=== PATIENT | female | born 1975 | race Caucasian/White ===

== ENCOUNTER 2023-01-19 15:31 | Emergency (ER) | payer OTHER ==
--- OUTSIDE RECORDS SUMMARY | 2023-01-19 15:34 | XMS REPORT | Continuity of Care Document ---
:1975 Author Organization [facility] Address [address] [place] [address] [place] [id number] Care Team Providers Name Role Phone PCP, PATIENT DOES NOT HAVE A Primary Care Physician Unavaila ble SISSON_C Attending Clinician Unavailable Kamran Carlson Attending Clinician Unavailable Ehsan THOMAS, Andreea Martin Attending Clinician Unavailable Naun Lauren MD Attending Clinician NAUN LAUREN Attending Clinician Unavailable Doctor Unassigned, [facility] Attending Clinician Unavailable DRAKE_[email or web address]_Franny Attending Clinician Unavailable SISSON_C Admitting Clinician Unavailable Kamran Carlson Admitting Clinician Unavailable Jl_Franny Admitting Clinician Unavailable Payers Payer Name Policy Type Policy Number Effective Date Expiration Date [facility] [id number] 2021 00:00:00 [place] [id number] 2017 2021 00:00:00 00:00:00 Problems Condition Condition Condition Status Onset Resolution Last Treating Co mments Source Name Details Category Date Date Treatment Clinician Date Upper Upper Disease Active 2021-06 [facility] extremity extremity 1-21 ity of weakness weakness 00:00: [address] Neck pain Neck pain Disease Active 2021-06 Uni vers -21 ity of 00:00: [address] Branch 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 [place] [facility] Allergies, Adverse Reactions, Alerts Allergy Allergy Status Severity Reaction(s) Onset Inactive Treating Comm ents Source Name Type Date Date Clinician No Known DA Active [facility] Allergie 3-03 Clear s 00:00: [place] 00 [facility] NO KNOWN Drug Active Univers ALLERGIE Class [facility] Social History Social Habit Start Date Stop Date Quantity Comments Source Exposure to 2022-05-06 2022-05-16 Not sure [facility] SARS-CoV-2 (event) 00:00:00 15:53:00 [facility] Branch Sex Assigned At [birth year] [facility] 00:00:00 00:00:00 Medical Branch Smoking Status Start Date Stop Date Source Tobacco smoking consumption [facility] Branch Medications Ordered Filled Start Stop Current Ordering Indication Dosage Frequency Signature Comments Components Source Medication Medication Date Date Medication? Clinician (SIG) Name Name Xeomin 100 Xeomin 100 No Xeomin 100 [place] unit unit 5-16 unit Communi intramuscul intramuscul 13:42: intramuscu ty ar ar 48 lar Hospita solutionInj solutionInj solutionIn l ect 44 ect 44 ject 44 Clinics units by units by units by intramuscul intramuscul intramuscu ar route. ar route. lar route. cyclobenzap cyclobenzap No cyclobenza [place] rine 10 mg rine 10 mg alvaro 10 Communi tablet TAKE tablet TAKE mg tablet ty 1 TABLET BY 1 TABLET BY TAKE 1 Hospita MOUTH EVERY MOUTH EVERY TABLET BY l DAY AT DAY AT MOUTH Clinics BEDTIME BEDTIME EVERY DAY NEEDED NEEDED AT BEDTIME NEEDED dextroamphe dextroamphe No dextroamph [place] tamine-amph tamine-amph etamine-am Communi etamine 30 etamine 30 phetamine ty mg tablet mg tablet 30 mg Hosp isi TAKE 1 TAKE 1 tablet l TABLET BY TABLET BY TAKE 1 Cli nics MOUTH THREE MOUTH THREE TABLET BY TIMES DAILY TIMES DAILY MOUTH THREE TIMES DAILY diclofenac diclofenac No diclofenac [place] sodium 75 sodium 75 sodium 75 Communi mg mg mg ty tablet,luz tablet,luz tablet,del Hospita yed release yed release ayed l TAKE 1 TAKE 1 release Clinics TABLET BY TABLET BY TAKE 1 MOUTH TWICE MOUTH TWICE TABLET BY DAILY AFTER DAILY AFTER MOUTH DOSE PACK DOSE PACK TWICE DAILY AFTER DOSE PACK escitalopra escitalopra No escitalopr [place] m 5 mg m 5 mg am 5 mg Communi tablet TAKE tablet TAKE tablet ty 1 TABLET BY 1 TABLET BY TAKE 1 Hospita MOUTH EVERY MOUTH EVERY TABLET BY l DAY DAY MOUTH Clinics EVERY DAY estradiol estradiol No estradiol [place] 12.5 mg 12.5 mg 12.5 mg Commun i implant implant implant ty pellet 15 pellet 15 pellet 15 Hospita MG MG MG l Clinics etodolac etodolac No etodolac Swe m[place] 500 mg 500 mg 500 mg Communi tablet TAKE tablet TAKE tablet ty 1 TABLET BY 1 TABLET BY TAKE 1 Hospita MOUTH TWICE MOUTH TWICE TABLET BY l DAILY DAILY MOUTH Clinics TWICE DAILY methylpredn methylpredn No methylpred [place] isolone 4 isolone 4 nisolone 4 Communi mg tablets mg tablets mg tablets ty in a dose in a dose in a dose Hospita pack FOLLOW pack FOLLOW pack l PACKAGE PACKAGE FOLLOW Clinics DIRECTIONS DIRECTIONS PACKAGE DIRECTIONS neomycin-po neomycin-po No neomycin-p [place] lymyxin-hyd lymyxin-hyd olymyxin-h Communi rocort 3.5 rocort 3.5 ydrocort ty mg-10,000 mg-10,000 3.5 Hospi ta unit/mL-1 % unit/mL-1 % mg-10,000 l ear ear unit/mL-1 Clinics drops,susp drops,susp % ear drops,susp quetiapine quetiapine No quetiapine [place] 25 mg 25 mg 25 mg Communi tablet TAKE tablet TAKE tablet ty 3 TABLETS 3 TABLETS TAKE 3 Hos issac BY MOUTH AT BY MOUTH AT TABLETS BY l BEDTIME BEDTIME MOUTH AT Clini cs BEDTIME testosteron testosteron No 137.5mg testostero [place] e 100 mg e 100 mg ne 100 mg Co mmuni implant implant implant ty pellet Take pellet Take pellet Hospita 137.5 mg by 137.5 mg by Take 137.5 l implantatio implantatio mg by Clinics n route. n route. implantati on route. tramadol 50 tramadol 50 No tramadol [place] mg tablet mg tablet 50 mg Comm uni TAKE 1 TAKE 1 tablet ty TABLET BY TABLET BY TAKE 1 Hos issac MOUTH THREE MOUTH THREE TABLET BY l TIMES DAILY TIMES DAILY MOUTH Clinics NEEDED NEEDED THREE TIMES DAILY NEEDED Xeomin 100 Xeomin 100 No 28unit( Xeomin 100 [place] unit unit s) unit Communi intramuscul intramuscul intramuscu ty ar solution ar solution lar H ospita Inject 28 Inject 28 solution l units by units by Inject 28 Cl inics intramuscul intramuscul units by ar route. ar route. intramuscu lar route. acetaminoph acetaminoph No acetaminop [place] en 300 en 300 hen 300 Communi mg-codeine mg-codeine mg-codeine ty 30 mg 30 mg 30 mg Hospita tablet TAKE tablet TAKE tablet l 1 TABLET BY 1 TABLET BY TAKE 1 Clinics MOUTH EVERY MOUTH EVERY TABLET BY 4 TO 6 4 TO 6 MOUTH HOURS HOURS EVERY 4 TO NEEDED NEEDED 6 HOURS NEEDED azithromyci azithromyci No azithromyc [place] n 250 mg n 250 mg in 250 mg Co mmuni tablet tablet tablet ty Hospita l Clinics bromphenira bromphenira No bromphenir [place] mine-pseudo mine-pseudo amine-pseu Communi ephedrine-D ephedrine-D doephedrin ty M 2 mg-30 M 2 mg-30 e-DM 2 Hos issac mg-10 mg/5 mg-10 mg/5 mg-30 l mL oral mL oral mg-10 mg/5 Cli nics syrup TAKE syrup TAKE mL oral 5 ML BY 5 ML BY syrup TAKE MOUTH EVERY MOUTH EVERY 5 ML BY 6 HOURS 6 HOURS MOUTH NEEDED NEEDED EVERY 6 HOURS NEEDED clonazepam clonazepam No clonazepam [place] 0.5 mg 0.5 mg 0.5 mg Communi tablet TAKE tablet TAKE tablet ty 1 TABLET BY 1 TABLET BY TAKE 1 Hospita MOUTH THREE MOUTH THREE TABLET BY l TIMES DAILY TIMES DAILY MOUTH Clinics THREE TIMES DAILY cyclobenzap cyclobenzap No cyclobenza [place] rine 10 mg rine 10 mg alvaro 10 Communi tablet TAKE tablet TAKE mg tablet ty 1 TABLET BY 1 TABLET BY TAKE 1 Hospita MOUTH EVERY MOUTH EVERY TABLET BY l DAY AT DAY AT MOUTH Clinics BEDTIME BEDTIME EVERY DAY NEEDED NEEDED AT BEDTIME NEEDED dextroamphe dextroamphe No dextroamph [place] tamine-amph tamine-amph etamine-am Communi etamine 30 etamine 30 phetamine ty mg tablet mg tablet 30 mg Hosp isi TAKE 1 TAKE 1 tablet l TABLET BY TABLET BY TAKE 1 Cli nics MOUTH THREE MOUTH THREE TABLET BY TIMES DAILY TIMES DAILY MOUTH THREE TIMES DAILY diclofenac diclofenac No diclofenac [place] sodium 75 sodium 75 sodium 75 Communi mg mg mg ty tablet,luz tablet,luz tablet,del Hospita yed release yed release ayed l TAKE 1 TAKE 1 release Clinics TABLET BY TABLET BY TAKE 1 MOUTH TWICE MOUTH TWICE TABLET BY DAILY AFTER DAILY AFTER MOUTH DOSE PACK DOSE PACK TWICE DAILY AFTER DOSE PACK escitalopra escitalopra No escitalopr [place] m 5 mg m 5 mg am 5 mg Communi tablet TAKE tablet TAKE tablet ty 1 TABLET BY 1 TABLET BY TAKE 1 Hospita MOUTH EVERY MOUTH EVERY TABLET BY l DAY DAY MOUTH Clinics EVERY DAY estradiol estradiol No estradiol [place] 12.5 mg 12.5 mg 12.5 mg Commun i implant implant implant ty pellet 15 pellet 15 pellet 15 Hospita MG MG MG l Clinics etodolac etodolac No etodolac Swe [place] 500 mg 500 mg 500 mg Communi tablet TAKE tablet TAKE tablet ty 1 TABLET BY 1 TABLET BY TAKE 1 Hospita MOUTH TWICE MOUTH TWICE TABLET BY l DAILY DAILY MOUTH Clinics TWICE DAILY hydrocodone hydrocodone No hydrocodon [place] 7.5 7.5 e 7.5 Communi mg-acetamin mg-acetamin mg-acetami ty ophen 325 ophen 325 nophen 325 Hospita mg tablet mg tablet mg tablet l TAKE 1 TAKE 1 TAKE 1 Clinics TABLET BY TABLET BY TABLET BY MOUTH EVERY MOUTH EVERY MOUTH 12 HOURS 12 HOURS EVERY 12 NEEDED NEEDED HOURS NEEDED methylpredn methylpredn No methylpred [place] isolone 4 isolone 4 nisolone 4 Communi mg tablets mg tablets mg tablets ty in a dose in a dose in a dose Hospita pack FOLLOW pack FOLLOW pack l PACKAGE PACKAGE FOLLOW Clinics DIRECTIONS DIRECTIONS PACKAGE DIRECTIONS nabumetone nabumetone No nabumetone [place] 750 mg 750 mg 750 mg Communi tablet TAKE tablet TAKE tablet ty ONE TABLET ONE TABLET TAKE ONE Hospita BY MOUTH BY MOUTH TABLET BY l TWICE A DAY TWICE A DAY MOUTH Clinics TWICE A DAY neomycin-po neomycin-po No neomycin-p [place] lymyxin-hyd lymyxin-hyd olymyxin-h Communi rocort 3.5 rocort 3.5 ydrocort ty mg-10,000 mg-10,000 3.5 Hospi ta unit/mL-1 % unit/mL-1 % mg-10,000 l ear ear unit/mL-1 Clinics drops,susp drops,susp % ear drops,susp neomycin-po neomycin-po No neomycin-p [place] lymyxin-hyd lymyxin-hyd olymyxin-h Communi rocort 3.5 rocort 3.5 ydrocort ty mg/mL-10,00 mg/mL-10,00 3.5 H ospita 0 unit/mL-1 0 unit/mL-1 mg/mL-10,0 l % ear % ear 00 Clinics solution solution unit/mL-1 INSTILL 4 INSTILL 4 % ear DROPS INTO DROPS INTO solution AFFECTED AFFECTED INSTILL 4 EAR(S) BY EAR(S) BY DROPS INTO OTIC ROUTE OTIC ROUTE AFFECTED 3 TIMES PER 3 TIMES PER EAR(S) BY DAY DAY OTIC ROUTE 3 TIMES PER DAY quetiapine quetiapine No quetiapine [place] 25 mg 25 mg 25 mg Communi tablet TAKE tablet TAKE tablet ty 3 TABLETS 3 TABLETS TAKE 3 Hos issac BY MOUTH AT BY MOUTH AT TABLETS BY l BEDTIME BEDTIME MOUTH AT Clini cs BEDTIME testosteron testosteron No 137.5mg testostero [place] e 100 mg e 100 mg ne 100 mg Co mmuni implant implant implant ty pellet Take pellet Take pellet Hospita 137.5 mg by 137.5 mg by Take 137.5 l implantatio implantatio mg by Clinics n route. n route. implantati on route. tramadol 50 tramadol 50 No tramadol [place] mg tablet mg tablet 50 mg Comm uni TAKE 1 TAKE 1 tablet ty TABLET BY TABLET BY TAKE 1 Hos issac MOUTH THREE MOUTH THREE TABLET BY l TIMES DAILY TIMES DAILY MOUTH Clinics NEEDED NEEDED THREE TIMES DAILY NEEDED Xeomin 100 Xeomin 100 No 44unit( Xeomin 100 [place] unit unit s) unit Communi intramuscul intramuscul intramuscu ty ar solution ar solution lar H ospita Inject 44 Inject 44 solution l units by units by Inject 44 Cl inics intramuscul intramuscul units by ar route. ar route. intramuscu lar route. acetaminoph acetaminoph No acetaminop [place] en 300 en 300 hen 300 Communi mg-codeine mg-codeine mg-codeine ty 30 mg 30 mg 30 mg Hospita tablet TAKE tablet TAKE tablet l 1 TABLET BY 1 TABLET BY TAKE 1 Clinics MOUTH EVERY MOUTH EVERY TABLET BY 4 TO 6 4 TO 6 MOUTH HOURS HOURS EVERY 4 TO NEEDED NEEDED 6 HOURS NEEDED azithromyci azithromyci No azithromyc [place] n 250 mg n 250 mg in 250 mg Co mmuni tablet tablet tablet ty Hospita l Clinics bromphenira bromphenira No bromphenir [place] mine-pseudo mine-pseudo amine-pseu Communi ephedrine-D ephedrine-D doephedrin ty M 2 mg-30 M 2 mg-30 e-DM 2 Hos issac mg-10 mg/5 mg-10 mg/5 mg-30 l mL oral mL oral mg-10 mg/5 Cli nics syrup TAKE syrup TAKE mL oral 5 ML BY 5 ML BY syrup TAKE MOUTH EVERY MOUTH EVERY 5 ML BY 6 HOURS 6 HOURS MOUTH NEEDED NEEDED EVERY 6 HOURS NEEDED clonazepam clonazepam No clonazepam [place] 0.5 mg 0.5 mg 0.5 mg Communi tablet TAKE tablet TAKE tablet ty 1 TABLET BY 1 TABLET BY TAKE 1 Hospita MOUTH THREE MOUTH THREE TABLET BY l TIMES DAILY TIMES DAILY MOUTH Clinics THREE TIMES DAILY dextroamphe dextroamphe No dextroamph [place] tamine-amph tamine-amph etamine-am Communi etamine 30 etamine 30 phetamine ty mg tablet mg tablet 30 mg Hosp isi TAKE 1 TAKE 1 tablet l TABLET BY TABLET BY TAKE 1 Cli nics MOUTH THREE MOUTH THREE TABLET BY TIMES DAILY TIMES DAILY MOUTH THREE TIMES DAILY escitalopra escitalopra No escitalopr [place] m 5 mg m 5 mg am 5 mg Communi tablet TAKE tablet TAKE tablet ty 1 TABLET BY 1 TABLET BY TAKE 1 Hospita MOUTH EVERY MOUTH EVERY TABLET BY l DAY DAY MOUTH Clinics EVERY DAY etodolac etodolac No etodolac [place] 500 mg 500 mg 500 mg Communi tablet TAKE tablet TAKE tablet ty 1 TABLET BY 1 TABLET BY TAKE 1 Hospita MOUTH TWICE MOUTH TWICE TABLET BY l DAILY DAILY MOUTH Clinics TWICE DAILY methylpredn methylpredn No methylpred [place] isolone 4 isolone 4 nisolone 4 Communi mg tablets mg tablets mg tablets ty in a dose in a dose in a dose Hospita pack FOLLOW pack FOLLOW pack l PACKAGE PACKAGE FOLLOW Clinics DIRECTIONS DIRECTIONS PACKAGE DIRECTIONS neomycin-po neomycin-po No neomycin-p [place] lymyxin-hyd lymyxin-hyd olymyxin-h Communi rocort 3.5 rocort 3.5 ydrocort ty mg-10,000 mg-10,000 3.5 Hospi ta unit/mL-1 % unit/mL-1 % mg-10,000 l ear ear unit/mL-1 Clinics drops,susp drops,susp % ear drops,susp quetiapine quetiapine No quetiapine [place] 25 mg 25 mg 25 mg Communi tablet TAKE tablet TAKE tablet ty 3 TABLETS 3 TABLETS TAKE 3 Hos issac BY MOUTH AT BY MOUTH AT TABLETS BY l BEDTIME BEDTIME MOUTH AT Clini cs BEDTIME acetaminoph acetaminoph No acetaminop [place] en 300 en 300 hen 300 Communi mg-codeine mg-codeine mg-codeine ty 30 mg 30 mg 30 mg Hospita tablet TAKE tablet TAKE tablet l 1 TABLET BY 1 TABLET BY TAKE 1 Clinics MOUTH EVERY MOUTH EVERY TABLET BY 4 TO 6 4 TO 6 MOUTH HOURS HOURS EVERY 4 TO NEEDED NEEDED 6 HOURS NEEDED azithromyci azithromyci No azithromyc [place] n 250 mg n 250 mg in 250 mg Co mmuni tablet tablet tablet ty [facility] bromphenira bromphenira No bromphenir [place] mine-pseudo mine-pseudo amine-pseu Communi ephedrine-D ephedrine-D doephedrin ty M 2 mg-30 M 2 mg-30 e-DM 2 Hos issac mg-10 mg/5 mg-10 mg/5 mg-30 l mL oral mL oral mg-10 mg/5 Cli nics syrup TAKE syrup TAKE mL oral 5 ML BY 5 ML BY syrup TAKE MOUTH EVERY MOUTH EVERY 5 ML BY 6 HOURS 6 HOURS MOUTH NEEDED NEEDED EVERY 6 HOURS NEEDED clonazepam clonazepam No clonazepam [place] 0.5 mg 0.5 mg 0.5 mg Communi tablet TAKE tablet TAKE tablet ty 1 TABLET BY 1 TABLET BY TAKE 1 [facility] THREE MOUTH THREE TABLET BY l TIMES DAILY TIMES DAILY MOUTH Clinics THREE TIMES DAILY cyclobenzap cyclobenzap No cyclobenza [place] rine 10 mg rine 10 mg alvaro 10 Communi tablet tablet mg tablet ty Hospita l Clinics dextroamphe dextroamphe No dextroamph [place] tamine-amph tamine-amph etamine-am Communi etamine 30 etamine 30 phetamine ty mg tablet mg tablet 30 mg Hosp isi TAKE 1 TAKE 1 tablet l TABLET BY TABLET BY TAKE 1 Cli nics MOUTH THREE MOUTH THREE TABLET BY TIMES DAILY TIMES DAILY MOUTH THREE TIMES DAILY diclofenac diclofenac No diclofenac [place] sodium 75 sodium 75 sodium 75 Communi mg mg mg ty tablet,luz tablet,luz tablet,del Hospita yed release yed release ayed l TAKE 1 TAKE 1 release Clinics TABLET BY TABLET BY TAKE 1 MOUTH TWICE MOUTH TWICE TABLET BY DAILY AFTER DAILY AFTER MOUTH DOSE PACK DOSE PACK TWICE DAILY AFTER DOSE PACK escitalopra escitalopra No escitalopr [place] m 5 mg m 5 mg am 5 mg Communi tablet TAKE tablet TAKE tablet ty 1 TABLET BY 1 TABLET BY TAKE 1 Hospita MOUTH EVERY MOUTH EVERY TABLET BY l DAY DAY MOUTH Clinics EVERY DAY etodolac etodolac No etodolac [place] 500 mg 500 mg 500 mg Communi tablet TAKE tablet TAKE tablet ty 1 TABLET BY 1 TABLET BY TAKE 1 Hospita MOUTH TWICE MOUTH TWICE TABLET BY l DAILY DAILY MOUTH Clinics TWICE DAILY methylpredn methylpredn No methylpred [place] isolone 4 isolone 4 nisolone 4 Communi mg tablets mg tablets mg tablets ty in a dose in a dose in a dose Hospita pack FOLLOW pack FOLLOW pack l PACKAGE PACKAGE FOLLOW Clinics DIRECTIONS DIRECTIONS PACKAGE DIRECTIONS neomycin-po neomycin-po No neomycin-p [place] lymyxin-hyd lymyxin-hyd olymyxin-h Communi rocort 3.5 rocort 3.5 ydrocort ty mg-10,000 mg-10,000 3.5 Hospi ta unit/mL-1 % unit/mL-1 % mg-10,000 l ear ear unit/mL-1 Clinics drops,susp drops,susp % ear drops,susp quetiapine quetiapine No quetiapine [place] 25 mg 25 mg 25 mg Communi tablet TAKE tablet TAKE tablet ty 3 TABLETS 3 TABLETS TAKE 3 Hos issac BY MOUTH AT BY MOUTH AT TABLETS BY l BEDTIME BEDTIME MOUTH AT Clini cs BEDTIME tramadol 50 tramadol 50 No tramadol [place] mg tablet mg tablet 50 mg Comm uni TAKE 1 TAKE 1 tablet ty TABLET BY TABLET BY TAKE 1 Hos issac MOUTH THREE MOUTH THREE TABLET BY l TIMES DAILY TIMES DAILY MOUTH Clinics NEEDED NEEDED THREE TIMES DAILY NEEDED Xeomin 100 Xeomin 100 No 28unit( Xeomin 100 [place] unit unit s) unit Communi intramuscul intramuscul intramuscu ty ar solution ar solution lar H ospita Inject 28 Inject 28 solution l units by units by Inject 28 Cl inics intramuscul intramuscul units by ar route. ar route. intramuscu lar route. acetaminoph acetaminoph No acetaminop [place] en 300 en 300 hen 300 Communi mg-codeine mg-codeine mg-codeine ty 30 mg 30 mg 30 mg Hospita tablet TAKE tablet TAKE tablet l 1 TABLET BY 1 TABLET BY TAKE 1 Clinics MOUTH EVERY MOUTH EVERY TABLET BY 4 TO 6 4 TO 6 MOUTH HOURS HOURS EVERY 4 TO NEEDED NEEDED 6 HOURS NEEDED azithromyci azithromyci No azithromyc [place] n 250 mg n 250 mg in 250 mg [facility]i tablet tablet tablet ty Hospita l Clinics bromphenira bromphenira No bromphenir [place] mine-pseudo mine-pseudo amine-pseu Communi ephedrine-D ephedrine-D doephedrin ty M 2 mg-30 M 2 mg-30 e-DM 2 Hos issac mg-10 mg/5 mg-10 mg/5 mg-30 l mL oral mL oral mg-10 mg/5 Cli nics syrup TAKE syrup TAKE mL oral 5 ML BY 5 ML BY syrup TAKE MOUTH EVERY MOUTH EVERY 5 ML BY 6 HOURS 6 HOURS MOUTH NEEDED NEEDED EVERY 6 HOURS NEEDED clonazepam clonazepam No clonazepam [place] 0.5 mg 0.5 mg 0.5 mg Communi tablet TAKE tablet TAKE tablet ty 1 TABLET BY 1 TABLET BY TAKE 1 Hospita MOUTH THREE MOUTH THREE TABLET BY l TIMES DAILY TIMES DAILY MOUTH Clinics THREE TIMES DAILY cyclobenzap cyclobenzap No cyclobenza [place] rine 10 mg rine 10 mg alvaro 10 Communi tablet TAKE tablet TAKE mg tablet ty 1 TABLET BY 1 TABLET BY TAKE 1 Hospita MOUTH EVERY MOUTH EVERY TABLET BY l DAY AT DAY AT MOUTH Clinics BEDTIME BEDTIME EVERY DAY NEEDED NEEDED AT BEDTIME NEEDED dextroamphe dextroamphe No dextroamph [place] tamine-amph tamine-amph etamine-am Communi etamine 30 etamine 30 phetamine ty mg tablet mg tablet 30 mg Hosp isi TAKE 1 TAKE 1 tablet l TABLET BY TABLET BY TAKE 1 Cli nics MOUTH THREE MOUTH THREE TABLET BY TIMES DAILY TIMES DAILY MOUTH THREE TIMES DAILY diclofenac diclofenac No diclofenac [place] sodium 75 sodium 75 sodium 75 Communi mg mg mg ty tablet,luz tablet,luz tablet,del Hospita yed release yed release ayed l TAKE 1 TAKE 1 release Clinics TABLET BY TABLET BY TAKE 1 MOUTH TWICE MOUTH TWICE TABLET BY DAILY AFTER DAILY AFTER MOUTH DOSE PACK DOSE PACK TWICE DAILY AFTER DOSE PACK escitalopra escitalopra No escitalopr [place] m 5 mg m 5 mg am 5 mg Communi tablet TAKE tablet TAKE tablet ty 1 TABLET BY 1 TABLET BY TAKE 1 Hospita MOUTH EVERY MOUTH EVERY TABLET BY l DAY DAY MOUTH Clinics EVERY DAY estradiol estradiol No estradiol [place] 12.5 mg 12.5 mg 12.5 mg Commun i implant implant implant ty pellet 15 pellet 15 pellet 15 Hospita MG MG MG l Clinics etodolac etodolac No etodolac Swe [place] 500 mg 500 mg 500 mg Communi tablet TAKE tablet TAKE tablet ty 1 TABLET BY 1 TABLET BY TAKE 1 Hospita MOUTH TWICE MOUTH TWICE TABLET BY l DAILY DAILY MOUTH Clinics TWICE DAILY methylpredn methylpredn No methylpred [place] isolone 4 isolone 4 nisolone 4 Communi mg tablets mg tablets mg tablets ty in a dose in a dose in a dose Hospita pack FOLLOW pack FOLLOW pack l PACKAGE PACKAGE FOLLOW Clinics DIRECTIONS DIRECTIONS PACKAGE DIRECTIONS neomycin-po neomycin-po No neomycin-p [place] lymyxin-hyd lymyxin-hyd olymyxin-h Communi rocort 3.5 rocort 3.5 ydrocort ty mg-10,000 mg-10,000 3.5 Hospi ta unit/mL-1 % unit/mL-1 % mg-10,000 l ear ear unit/mL-1 Clinics drops,susp drops,susp % ear drops,susp quetiapine quetiapine No quetiapine [place] 25 mg 25 mg 25 mg Communi tablet TAKE tablet TAKE tablet ty 3 TABLETS 3 TABLETS TAKE 3 Hos issac BY MOUTH AT BY MOUTH AT TABLETS BY l BEDTIME BEDTIME MOUTH AT Clini cs BEDTIME testosteron testosteron No 137.5mg testostero [place] e 100 mg e 100 mg ne 100 mg Co [facility] implant implant implant ty pellet Take pellet Take pellet Hospita 137.5 mg by 137.5 mg by Take 137.5 l implantatio implantatio mg by Clinics n route. n route. implantati on route. tramadol 50 tramadol 50 No tramadol [place] mg tablet mg tablet 50 mg Comm uni TAKE 1 TAKE 1 tablet ty TABLET BY TABLET BY TAKE 1 Hos issac MOUTH THREE MOUTH THREE TABLET BY l TIMES DAILY TIMES DAILY MOUTH Clinics NEEDED NEEDED THREE TIMES DAILY NEEDED Xeomin 100 Xeomin 100 No 28unit( Xeomin 100 [place] unit unit s) unit Communi intramuscul intramuscul intramuscu ty ar solution ar solution lar H ospita Inject 28 Inject 28 solution l units by units by Inject 28 Cl inics intramuscul intramuscul units by ar route. ar route. intramuscu lar route. acetaminoph acetaminoph No acetaminop [place] en 300 en 300 hen 300 Communi mg-codeine mg-codeine mg-codeine ty 30 mg 30 mg 30 mg Hospita tablet TAKE tablet TAKE tablet l 1 TABLET BY 1 TABLET BY TAKE 1 Clinics MOUTH EVERY MOUTH EVERY TABLET BY 4 TO 6 4 TO 6 MOUTH HOURS HOURS EVERY 4 TO NEEDED NEEDED 6 HOURS NEEDED azithromyci azithromyci No azithromyc [place] n 250 mg n 250 mg in 250 mg [facility]i tablet tablet tablet ty Hospita l Clinics bromphenira bromphenira No bromphenir [place] mine-pseudo mine-pseudo amine-pseu Communi ephedrine-D ephedrine-D doephedrin ty M 2 mg-30 M 2 mg-30 e-DM 2 Hos issac mg-10 mg/5 mg-10 mg/5 mg-30 l mL oral mL oral mg-10 mg/5 Cli nics syrup TAKE syrup TAKE mL oral 5 ML BY 5 ML BY syrup TAKE MOUTH EVERY MOUTH EVERY 5 ML BY 6 HOURS 6 HOURS MOUTH NEEDED NEEDED EVERY 6 HOURS NEEDED clonazepam clonazepam No clonazepam [place] 0.5 mg 0.5 mg 0.5 mg Communi tablet TAKE tablet TAKE tablet ty 1 TABLET BY 1 TABLET BY TAKE 1 Hospita MOUTH THREE MOUTH THREE TABLET BY l TIMES DAILY TIMES DAILY MOUTH Clinics THREE TIMES DAILY Vital Signs Vital Name Observation Time Observation Value Comments Source BP Diastolic 2022-07-04 00:00:00 79 mm[Hg] [facility] BP Systolic 2022-07-04 00:00:00 114 mm[Hg] [facility] Body Weight 2022-07-04 00:00:00 2656 [oz_av] [facility] Procedures Procedure Date / Time Performing Clinician Source Performed NO SHOW OR MISSED 2022-04-20 20:36:05 Doctor Unassigned, [facility] APPOINTMENT POLICY [address] [facility] ACKNOWLEDGEMENT Plan of Care Planned Activity Planned Date Details Comments Source Diagnostic Test 2022-06-13 estradiol, serum [facility] Pending 00:00:00 [code = estradiol, [facility] serum] Diagnostic Test 2022-06-13 testosterone, [place] [facility] Pending 00:00:00 total, serum [code [facility] = testosterone, total, serum] Diagnostic Test 2022-06-13 [facility] [place] [facility] Pending 00:00:00 (follicle-stimulat [facility] ing hormone), serum [code = [facility] (follicle-stimulat ing hormone), serum] Encounters Start End Encounter Admission Attending Care Care Encounter Source Date/Time Date/Time Type Type Clinicians Facility Department ID 2022-10-16 2022-10-16 [facility] [id number]- 2022 [place] 00:00:00 00:00:00 0516 [facility] i ty Hospita l Clinics 2022-10-16 2022-10-16 [facility] [place] 16 [place] 00:00:00 00:00:00 Elaina Ortiz uni MSN, DISC INSPECTOR, Hospital - ty ACCESSORIES REPAIRER-C: 303 [place] [facility] Clinic s [address], [facility] [address], Rashad Ortiz [place] MSN, ACCESSORIES REPAIRER-C [phone] , Ph. 2022-09-04 2022-09-04 Outpatient ROBLES Carlson KAREEN RADI [id number] [facility] 12:03:00 12:03:[address] [place] [address] 2022-08-08 2022-08-09 Inpatient ROBLES Carlson [facility] [id number] [facility] 14:23:00 10:03:00 Kamran 38 [facility] 2022-08-03 2022-08-03 Outpatient COLLETTE Carlson LABO [id number] [facility] 23:37:00 23:37:00 Kamran 40 [facility] 2022-07-04 2022-07-04 [facility] [place] [id number] [place] 00:00:00 00:00:00 Diana, [facility] Comm uni MSN, DISC INSPECTOR, Hospital - ty ACCESSORIES REPAIRER-C: [address] [place] [facility], Clinic s [address], [facility] [address], Rashad [place]iz [place] MSN, ACCESSORIES REPAIRER-C [address] , Ph. 2022-06-13 2022-06-13 [facility] [id number] [place] 00:00:00 00:00:00 0111 Commun i ty [facility] 2022-06-13 2022-06-13 [facility] [id number] [place] 00:00:00 00:00:00 0201 Commun i ty [facility] 2022-06-13 2022-06-13 [facility] [place] [id number] [place] 00:00:00 00:00:00 Diana, Community Comm uni MSN, DISC INSPECTOR, Hospital - ty ACCESSORIES REPAIRER-C: 303 [place] [facility] [address], [facility] [address], Rashad [place]iz [place] MSN, ACCESSORIES REPAIRER-C [address] , Ph. 2022-05-23 2022-05-23 Ancillary Andreea Moser [facility] 1.2.84 0.114 [id number] [facility] 16:00:00 16:40:01 Visit Naun Lauren 350.1.13.10 [facility] [place] [phone] N[place] dical NAL 179 [facility] 2022-05-23 2022-05-23 Outpatient R LAUREN, [facility] [id number] Univers 16:00:00 16:40:01 NAUN itblanca [facility] 2022-05-21 2022-05-21 Ancillary Andreea Moser [facility] 1.2.84 0.114 [id number] Univers 16:00:00 16:45:31 Visit Naun Lauren 350.1.13.10 ity of [place] [id number] N[place] dical NAL 179 [facility] 2022-05-16 2022-05-16 Ancillary Andreea Moser [facility] 1.2.84 0.114 [id number] [facility] 16:00:00 16:44:26 Visit Naun Lauren 350.1.13.10 [place] [id number] N[place] dical NAL 179 [facility] 2022-05-04 2022-05-04 Ancillary Andreea Moser [facility] 1.2.84 0.114 [id number] Univers 13:45:00 14:30:00 Visit Naun Lauren 350.1.13.10 ity [place] 4.2.7.2.[place] [phone] N[place] dical NAL 179 [facility] 2022-04-30 2022-04-30 Ancillary Andreea Moser [facility] 1.2.84 0.114 [id number] Univers 13:00:00 13:45:00 Visit Naun LaurenTON 350.1.13.10 ity [place] 4.2.[place] [id number] N[place] dical NAL 179 [facility] 2022-04-30 2022-04-30 Outpatient R LEONIDAS [facility] [id number] Univers 13:00:00 13:00:00 NAUN landers [facility] 2022-04-20 2022-04-20 Ancillary Andreea Moser Mario [facility] 1.2.84 0.114 [id number] Univers 13:45:00 15:21:48 Visit Naun Lauren 350.1.13.10 ity of [place].2.[place] [phone] Nc dical NAL 179 [facility] 2022-04-20 2022-04-20 Orders Doctor FIDEL 1.2.840.114 [id number] Univers 00:00:00 00:00:00 Only Unassigned, OSVALDO 350.1.13.10 [facility] [place] [facility] 4.2.7.2.686 Justin as [phone] [address] 2022-04-10 2022-04-10 Outpatient SISSON_C [facility] [id number] [place] 00:00:00 00:00:00 1108 Commun i ty Hospita l Clinics 2022-04-06 2022-04-06 [facility] [id number] [place] 00:00:00 00:00:00 1104 Commun i ty Hospita l Clinics 2022-04-06 2022-04-06 [facility] [place] [id number] [place] 00:00:00 00:00:00 Diana [facility] MSN, DISC INSPECTOR, Hospital - ty ACCESSORIES REPAIRER-C: 303 [place] [facility], Clinic s [address], [place] [address], Rahsad Ortiz [place] MSN, ACCESSORIES REPAIRER-C [address] , Ph. 2022-03-14 2022-03-14 [facility] [id number] [place] 00:00:00 00:00:00 1012 Commun i ty Hospita l [facility] 2022-03-14 2022-03-14 [facility] [place] 00:00:00 00:00:00 [facility] MSN, DISC INSPECTOR, Hospital - ty ACCESSORIES REPAIRER-C: 303 [place] [facility] Clinic s [address], [place] [address], Rashad [place], [place] MSN, ACCESSORIES REPAIRER-C [address] , Ph. 2022-03-13 2022-03-13 Outpatient DIANA_Kati [facility] [id number] [place] 00:00:00 00:00:00 1011 Commun i ty Hospita l Clinics 2021-05-22 2021-05-22 Outpatient GC_SWHAKAO_ PRIV PRIV 150 [id number] [facility] 12:04:00 12:04:00 Cole_N [id number] Medica l Results Test Description Test Time Test Comments Results Result [facility] Comments - XR C-SPINE 4-5 V 2022-09-04 12:46:00 [facility] ASHLEYBenitoRAMO Beavers : 1975 Sex: F FAX: Kamran Ceron [phone] [place]: O St: REG Name: RAMO BAILEY [facility] : 1975 Age/S: 47/F Nitin Collinsncer Christal Unit #: [id number] Loc: [place] [address] Phys: Kamran Carlson MD Acct: [id number] Dis Date: Status: REG CLI PHONE #: [phone] Exam Date: 09/04/2022 1231 FAX #: [phone] Reason: CERVICAL DISC HERNIATION EXAMS: CPT CODE: [id number] XR C-SPINE 4-5 V 36141 REASON FOR EXAM: CERVICAL DISC HERNIATION EXAM ORDER DATE: 09/04/2022 12:13 PM Ordering: Kamran Carlson MD Attending:Kamran Carlson MD Location:[facility] PROCEDURE: - XR C-SPINE 4-5 V Findings/ impression: 4 views of the cervical spine with flexion-extension views. Postsurgical changes related to ACDF from C5 to C7. No evidence of hardware loosening or failure. No significant subluxation. Anatomic alignment. No acute abnormalities. at 6156 Reported and signed by: George Blue M.D. CC: Kamran Carlson MD Technologist: SIMRAN MACIAS) Nicholas Date/Time/By: 09/04/2022 (5693) : By: [email or web address] Orig Print D/T: S: 09/04/2022 (7888) PAGE 1 Signed Report SURGICAL 2022-08-10 15:31:00 Test Item Value Reference Range Interpretation Comme nts SURGICAL RUN (test DATE: 08/10/22 Behzad Tapia PAGE 1 RUN TIME: 1531 Specimen Inquiry RUN USER: INTERFACE code = VICTOR MANUEL SR) ENT: RAMO BAILEY LOC: [place] U #: [id number] AGE/SX: 47/F ROOM: [facility] RE08/08/22REG DR: Kamran Carlson MD : [birth year] BED: A DIS: 08/09/22 STATUS: DIS Jacklyn TLOC: SPEC #: [id number] RECD: 0 08/08/22-1417 STATUS: JOYCELYN [facility] #: [id number] TONY: 08/08/22- SUBM DR: Kamran Carlson MD ENTERED : 08/08/22-1418 SP TYPE: SURGICAL OTHR DR: ORDERED: [id number], ANATOMIC SPEC PROCEDURES: [id number] (08/01 -1528) TISSUES: NECK - CERVICAL DISK FINAL DIAGNOSIS SPINE, CERVICAL C5-C7, DISCECTOMY: - Pieces of disc material and benign cartilage. GROSS DESCRIPTION Specimen A is received in [facility] labeled with the patient's name, medical record number,"cervical disc" and c onsists of an aggregate of solano-pink irregular soft tissue fragmentsmeasuring 4.0 x 3.5 x 0.6 cm in aggregate. [facility] Vat Worker of the specimen is submitted inA1. Technical component excluding immunohistochemist ry is performed at [facility], [address] [place] [address] Technical component of all immunohistochemistry is perf ormed at [facility], [address] [place] [address], [address], [place] [address] Immunohist ochemistry: This test was developed and its performance characteristicsdetermined by this laboratory. It has not been approved nor does it need approval by the USFDA. Appropriate po sitive and negative controls are reviewed and judged to be acceptable.This laboratory i s certified under the Clinical Laboratory Improvement Amendments (CLIA-88)as qualified to per form high complexity clinical laboratory testing. Unless gross only, the diagnosis is based upon microscopic examination. MICROSCOPIC DESCRIPTION Microscopic examination supports the pat hologic diagnosis. 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 CONTINUED ON NEXT PAGE RUN DATE: 08/10/22 Behzad Tapia PAGE 2 RUN TIME: 1531 Specimen Inquiry RUN USER: INTERFACE SPEC #: [id number] PATIENT: RAMO BAILEY #[id number] (Continued) ------- Signed SIGNATURE ON FILE Nurys Mccarthy 08/10/22 1 531 END OF REPORT - XR C-SPINE 2-3 [id number] 08:05:00 [facility] : 1975 Sex: F FAX: Kamran Ceron [phone] [place]: B St: ADM Name: RAMO BAILEY [facility] : 1975 Age/S: 47/F [address] Unit #: [id number] Loc: V.5017 [place] [address] Phys: Kamran Carlson MD Acct: [id number] Dis Date: Status: ADM IN PHONE #: [phone] Exam Date: 08/09/2022 0751 FAX #: [phone] Reason: Status post fusion EXAMS: CPT CODE: [id number] XR C-SPINE 2- 3 VIEWS 07406 HISTORY: Post fusion. COMPARISON: None available. Location: [facility]. AP and lateral view of the C-spine: Cervical fusion with anterior fixation plate and bone graft from C5 through C7 in anatomic alignment.Vertebral body heights are maintained. Disc spaces are preserved. Mild prevertebral soft tissue swell ing. Uncovertebral joints are narrowed. Lung apices are clear. IMPRESSION: Anatomic alignment of thecervical fusion with anterior fixation plate and bone graft from C5 through C7. at 0805 Reported and signed by: Romulo Jimenes M.D. CC: Kamran Barrow MD Technologist: GREGORY MACEDO JR RT(R) Trnscrd Date/Time/By: 08/09/2022 (804) : By: [email or web address] Orig Print D/T: S: 08/09/2022 (0808) PAGE 1 Signed [id number] 10:34:00 Test Item Value Reference Range Interpretation Comments GLUBED (test code = 95 mg/dL 74-106 N Performe d by certified GLUBED) grinder setup operator at [facility] BASIC METABOLIC [id number] 15:45:00 Test Item Value Reference Range Interpretation Comments SODIUM (test code = 138 mmol/L 136-145 N NA) POTASSIUM (test 3.7 mmol/L 3.5-5.1 N code = K) CHLORIDE (test code 104.0 mmol/L 98-107 N = CL) CARBON DIOXIDE 27.0 mmol/L 21-32 N (test code = CO2) ANION GAP (test 10.7 10-20 N code = GAP) GLUCOSE (test code 83 mg/dL 74-106 N = GLU) BLOOD UREA NITROGEN 12 mg/dL 7-18 N (test code = BUN) GLOMERULAR > 60 mL/min >=60 The Glomerular FILTRATION RATE Filtration R ate is a (test code = GFR) calculated parameterbased on serum Creatinin e, patient age and sex. GFR valuesless than 60 mL/min/1.73 squ are meters are brodie cative ofChronic Kidne y Disease. Values less than 15 mL/min/1.73squa re meters indicate Kidney failure. The calculation for GFR is based on the CK D-EPI (2020) calculat ion. This formulais race indifferent and is the recommended for farrukh for GFRby the N ational Kidney Foundati on for Adults.The GFR will not calculate i f the sex is unknown or if thepatient's ag e is <18 years. CREATININE (test 1.10 mg/dL 0.55-1.02 H Note zaidi ge in code = CREAT) reference rang e due to change in reage nt. BUN/CREATININE 10.9 10-20 N RATIO (test code = BUN/CREA) CALCIUM (test code 9.0 mg/dL 8.5-10.1 N = CA) CBC W/AUTO [id number] 15:03:00 Test Item Value Reference Range Interpretation Comments WHITE BLOOD CELL (test code = 5.9 K/mm3 4.5-12.5 N WBC) RED BLOOD CELL (test code = 4.49 mill/mm3 3.7-5.2 N RBC) HEMOGLOBIN (test code = HGB) 13.6 gram/dL 11.5-15.5 N HEMATOCRIT (test code = HCT) 41.9 % 36.0-46.0 N MEAN CELL VOLUME (test code = 93.3 fL 80-98 N MCV) MEAN CELL HGB (test code = MCH) 30.3 picogram 27.0-33.0 N MEAN CELL HGB CONCETRATION 32.5 gram/dL 33.0-36.0 L (test code = MCHC) RED CELL DISTRIBUTION WIDTH 12.6 % 11.6-16.2 N (test code = RDW) RED CELL DISTRIBUTION WIDTH SD 43.3 fL 37.0-51.0 N (test code = RDW-SD) PLATELET COUNT (test code = 250 K/mm3 150-450 N PLT) MEAN PLATELET VOLUME (test code 9.0 fL 6.7-11.0 N = MPV) NEUTROPHIL % (test code = NT%) 60.9 % 39.0-69.0 N IMMATURE GRANULOCYTE % (test 0.3 % 0.0-5.0 N code = IG%) LYMPHOCYTE % (test code = LY%) 29.2 % 25.0-55.0 N MONOCYTE % (test code = MO%) 7.1 % 0.0-10.0 N EOSINOPHIL % (test code = EO%) 2.0 % 0.0-5.0 N BASOPHIL % (test code = BA%) 0.5 % 0.0-1.0 N NUCLEATED RBC % (test code = 0.0 % 0-0 N NRBC%) NEUTROPHIL # (test code = NT#) 3.58 K/mm3 1.8-7.7 N IMMATURE GRANULOCYTE # (test 0.02 x10 3/uL 0-0.03 N code = IG#) LYMPHOCYTE # (test code = LY#) 1.72 K/mm3 1.0-5.0 N MONOCYTE # (test code = MO#) 0.42 K/mm3 0-0.8 N EOSINOPHIL # (test code = EO#) 0.12 K/mm3 0.0-0.5 N BASOPHIL # (test code = BA#) 0.03 K/mm3 0.0-0.2 N NUCLEATED RBC # (test code = 0.00 K/mm3 0.0-0.1 N NRBC#) PROTHROMBIN [id number] 15:02:00 Test Item Value Reference Range Interpretation Comments PROTHROMBIN TIME 10.0 seconds 9.0-14.0 N PATIENT (test code = PTP) INTERNATIONAL NORMAL 0.9 0.8-1.2 N The the rapeutic range RATIO (test code = for oral INR) anticoagulant t herapy formost indicat ions is an internati onal normalized rati o (INR)of between 2.0 and 3.0. The recommended therapeutic INR range for various cli nical situations is l isted below: Clinical Situat ion INR range Pulmonary embol ism treatment (2.0-3.0)Venous thrombosis treatmentVenous thrombosis prophylaxis (hi gh risk surgery)Prevent ion of systemic emboli sm from: Acute myocardial infa rction Valvular heart disease Atrial fibrillation Mechanical pros thetic heart valves (2.5-3.5) IS PATIENT ON ANTICOAGULANTS? NTHROMBOPLASTIN TIME [id number] 15:02:00 Test Item Value Reference Range Interpretation Comments THROMBOPLASTIN TIME PARTIAL 29.0 seconds 23.0-37.0 N (test code = PTT) IS PATIENT ON ANTICOAGULANTS? N- XR CHEST 2 [id number] 14:47:00 [facility] 1975 Sex: F FAX: Kamran Ceron [phone] Richardson: B St: PRE Name: RAMO BAILEY [facility] : 1975 Age/S: 47/F [address] Unit #: [id number] Loc: [place] [address] Phys: Argelia Carlson MD Acct: [id number] Dis Date: Status: PRE [facility] PHONE #: [phone] Exam Date: 08/03/2022 1445 FAX #: [phone] Reason: PREOP EXAMS: CPT CODE: [id number] XR CHEST 2 V 16649 HISTORY: Preop. COMPARISON: None available. Location: [facility]. AP and lateral view of the chest: No acute infiltrates, effusionor congestion. Cardiac and the mediastinal silhouette are normal. DJD of the dorsal spine. IMPRESSION: No acute infiltrates, effusion or congestion. at 1447 Reported and signed by: Romulo Jimenes M.D. CC: Kamran Carlson MD Technologist:Nurys VEGAS(R) Trnscrd Date/Time/By: 08/03/2022 (144) : By: [email or web address] Orig Print D/T: S: 08/03/2022 (7246) PAGE 1 Signed Report Notes Date/Time Note Provider Source 2022-08-08 19:19:00-00:00 [facility] ([facility]) Post Anesthesia Evaluation REPORT#:[id number] REPORT STATUS: Signed DATE:08/08/22 TIME: 1918 PATIENT: RAMO BAILEY UNIT #: [id number] ROOM/BED: [address] : [birth year] AGE: 47 SEX: F ATTEND: Vernon Carlson MD ADM AUTHOR: Paras Acuna MD * ALL edits or amendments must be made on the el [employer]/computer document * Post Anesthesia Evaluation Anes. changes from pre-op eval ORM Surgeries: Surgery Date and Time: 08/08/2022 1200 Primary Procedure: C5-6 C6-7 ANTERIOR CERVICAL DISCECTOMY Anesthetic: GETA Date: 08/08/22 Level of consciousness: no change, patient awake , able to answer questions, participate in this eval. Neurological assessment: Neuromuscular block: resolved as expected Musculoskeletal: moves all extremities, sensati on intact, returned to pre- status Vital signs: Last Documented: Result Date Time Pulse Ox 94 08/08 1651 B/P 106/69 08/08 1651 B/P Mean 81.2 08/08 1651 O2 Delivery Room air 08/08 1651 Temp 36.4 08/08 1651 Pulse 89 08/08 1651 Resp 12 08/08 1651 O2 Flow Rate 2 08/08 1501 Cardiovascular: no change, CV system stable, vit al signs stable Respiratory/Airway: respiratory system stable, m aintains without support Pain: adequately controlled, pain med. administe red Hydration: adequate Temp status: greater than 96.8F Presence of N/V: no Anesthesia complications: no Conclusions: no apparent anes. issues Electronically Signed by Paras Acuna MD n 08/08/22 at 1920 RPT #:[id number] END OF REPORT 2022-08-08 13:40:00-00:00 [facility] ([facility]) DT Operative Note REPORT#:[id number] REPORT STATUS: Signed DATE:08/08/22 TIME: 1340 PATIENT: RAMO BAILEY UNIT #: [id number] ROOM/BED: : 73 AGE: 47 SEX: F ATTEND: Vernon Carlson MD ADM AUTHOR: Kamran Carlson MD * ALL edits or amendments must be made on the [employer]/computer document * Operative Report Operative Note Note: DATE OF OPERATION: 08/08/2022 PREOPERATIVE DIAGNOSIS: C5-6 and C6-7 spondylosi s with radiculopathy, M50.120 POSTOPERATIVE DIAGNOSIS: Same PROCEDURES: 1. C5-6 anterior cervical di scectomy and microsurgical osteophyte resection and allograft fusion, 58384 2. C6-7 anterior cervical d iscectomy and microsurgical osteophyte resection and allograft fusion, 15762 3. Preparation of iliac crest tricortical allogr aft, 02793 4. C5-6 and C6-7 anterior cervical plating with Synthes CSLP plate, 62499 SURGEON: Kamran Carlson MD, FAANS DIESEL TRAILER MECHANIC: None ANESTHESIA: General with SSEP monitoring INDICATIONS: The patient is a 47-year-old woman who presented with C5-6 and C6-7 spondylosis with radiculopathy and was taken to surgery for two-level ACDF. DETAIL OF THE PROCEDURE: After induction of general endotracheal anesthes ia, the patient was placed on the operating table in supine position. The right side of the neck was prepped and draped in sterile fashion. A transverse inci ebony was created on the right side of the neck overlying the C6 verteb ral body as determined by fluoroscopy. The platysma was divided in line with the incision. Subplatysmal dissection was carried out. An avascular plane of dissection wa s developed medial to the sternocleidomastoid muscle was followed medial t o the carotid sheath to the anterior border of the cervical spine. The deep cervical fascia was opened. The esophagus was retracted to the left. The attachments of longus coli muscles to the anterolateral aspects of the vertebral katiana dies of C5, C6 and C7 were divided. The anterior longitudinal ligament was resected. [place] posts were inserted into C5 and C7, and the [place] distractor was used to distract the disc spaces. The anterior annuli of the discs were in cised with a #11 blade. The contents of the discs were thoroughly evacuated with angled curettes and pituitary rongeurs. The posterior osteop hytes were meticulously drilled with a 2 mm cutting bur on a high-speed drill until the y were completely removed at both levels. The posterior annulus of the disc, herniated disc material, and the posterior longitudinal l igament were resected layer by layer until the dura was fully exposed and decompressed at both level s. The medial aspects of the uncinate processes were resected bilaterally to further expose and decompress the origins of the corresponding nerve roots at both levels. After satisfactory decompres ebony had been achieved, the endplates were prepared for fusion. Two pieces of iliac crest tricortica l allograft were cut to the size and shape of the disc spaces and inserted i nto the disc spaces under distraction and lateral fluo roscopic guidance. The distraction was released and the distraction posts were removed. A Synthes CS LP variable type anterior cervical plate measuring 34 mm in length was lorie ected and affixed to the vertebral bodies of C5, C6 and C7 with 3 pairs o f 14 x 4.35 mm screws. All screw holes were drilled and tapped under latera l fluoroscopic guidance. All screws were locked with the appropriate locking screws. An excellent construct was obtained. The wound was copiously irrigated with bacitracin solution. Meticulous hemostasis was secured. The platysma was closed with 3-0 Vicryl sutures. Skin was closed with 4-0 Monocryl sutur es in subcuticular fashion. Steri-Strips and dressing were applied. A collar was applied. Patient was awakened and extubated and taken to postanesthes ia care unit in stable condition. No intraoperative complications were encountered. Estimated blood loss was 30 ml. No adverse SSEP changes were not ed at any point in operation. at 1342 RPT #:[id number] END OF REPORT 2022-08-03 15:35:00-00:00 [id number] [facility] PATIENT NAME: RAMO BAILEYNNE ADMIT DATE: ACCOUNT NO: [id number] ROOM NO: AGE: 47 REPORT TYPE: eEKG REPORT SEX: F DATE OF : [birth year] ADMITTING PHYSICIAN: ATTENDING PHYSICIAN:Kamran Carlson MD Order: [id number] Test Reason : PRE-OP ORDERS Test Date/Time Stamp: SatAug 03 2022 15:35:44 Blood Pressure : / mmHG Vent. Rate : 078 BPM Atrial Rate : 078 BPM P-R Int : 156 ms QRS Dur : 084 ms QT Int : 362 ms P-R-T Axes : 061 086 064 degree s QTc Int : 412 ms Normal sinus rhythm Normal ECG No previous ECGs available Confirmed by EARL ZEPEDA MD ([id number]) on 3 11:36:52 AM Referred By: Kamran Carlson Confirmed by:EARL ZEPEDA MD at 1136 PATIENT NAME: RAMO BAILEY ACCOUNT #: [id number]
[2023-01-19] MEDS ORDERED: HYDROCODONE/APAP 5/325 MG TAB ONE (18:12)
[2023-01-19] MEDS ORDERED: ACETAMINOPHEN 325 MG TABLET ONE (18:12)
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
--- NOTE | 2023-01-19 19:13 | RAD REPORT ---
EXAM DESCRIPTION: RAD - Wrist Right 3 View - 01/19/2023 6:19 pm CLINICAL HISTORY: PAIN COMPARISON: No comparisons TECHNIQUE: Right wrist, 3 views. FINDINGS: No acute fracture. There is no dislocation or periosteal reaction noted. No other signific ant bony finding. No foreign body or other soft tissue abnormality. IMPRESSION: Negative right wrist examination.
--- NOTE | 2023-01-19 19:13 | RAD REPORT ---
EXAM DESCRIPTION: RAD - Ribs Left - 01/19/2023 6:19 pm CLINICAL HISTORY: PAIN COMPARISON: No comparisons TECHNIQUE: Left ribs, 3 views. FINDINGS: No displaced rib fracture is evident. No aggressive rib lesion. No underlying pneumothorax, effusion, infiltrate or pulmonary contusion. IMPRESSION: Negative left rib series.
--- NOTE | 2023-01-19 19:25 | RAD REPORT ---
EXAM DESCRIPTION: CT - CTFB CLINICAL HISTORY: PAIN COMPARISON: No comparisons TECHNIQUE: Axial noncontrast thin cut CT images of the face were obtained with sagittal and coronal reconstruction images. All CT scans are performed using dose optimization technique as appropriate and may include automated exposure control or mA/KV adjustment according to patient size. FINDINGS: No acute facial bone fracture is seen.The mandible is intact. The globes and orbital contents are grossly unremarkable.The paranasal sinuses and mastoids are clear . IMPRESSION: Negative for facial bone fracture or other abnormalities.
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
[2023-01-19 21:00] VITALS: BP 123/92; TEMP 99; O2SAT 99
== END 2023-01-19 20:10 | disposition home or self-care (01) ==
LOC: ER 15:31
DX: T14.8XXA Other injury of unspecified body region, initial encounter (principal); Y04.2XXA Assault by strike against or bumped into by another person, initial encounter; Y93.9 Activity, unspecified; Y92.019 Unspecified place in single-family (private) house as the place of occurrence of the external cause; M54.2 Cervicalgia; M25.531 Pain in right wrist; R07.81 Pleurodynia; R07.9 Chest pain, unspecified; Z04.71 Encounter for examination and observation following alleged adult physical abuse
CPT/HCPCS: 70450; 70486; 72125; 76377; 99283